=== PATIENT | male | born 1950 | race Caucasian/White ===

== ENCOUNTER 2024-05-01 08:37 | Outpatient (CLI) | payer MEDICARE, BC, SELFPAY ==
[2024-05-01 09:13] LABS: Absolute Lymphocyte Count 1.71 X10^3/uL (0.83-4.51); Absolute Neutrophil Count 5.1 X10^3/uL (2.0-7.7); Basophil# 0.08 X10^3/uL; Basophil% 1.1 % (0-1); Eosinophil# 0.05 X10^3/uL; Eosinophils% 0.7 % (0-5); Hematocrit 46.2 % (40-54); Hemoglobin 14.9 g/dL (13.0-16.5); Lymphocyte # 1.71 X10^3/ul (0.83-4.51); Lymphocyte % 22.7 % (19-41); Mean Corp Hgb Conc 32.3 g/dL (32-36); Mean Corpuscular Volume 96.3 fL (80-94); Mean Platelet Vol. 10.3 fl (6.2-12.0); Monocyte# 0.55 X10^3/uL; Monocyte% 7.3 % (0-10); NRBC Flagged by Analyzer 0 % (0-5); Neutrophil # 5.11 X10^3/uL (2.7-7.7); Neutrophil % 67.8 % (47-70); Platelet Count 287 K/mm3 (150-450); RBC Distribution Width CV 14.3 % (11.6-14.6); RBC Distribution Width SD 50.1 fl (35.1-43.9); White Blood Count 7.5 K/mm3 (4.4-11.0)
[2024-05-01 09:18] LABS: Erythrocyte Sedimentation Rate 13 mm/hr (0-20)
[2024-05-01 09:48] LABS: AST(SGOT) 32 U/L (15-37); Alanine Aminotransfer ALT/SGPT 43 U/L (16-61); Albumin, Serum 4.2 g/dL (3.2-5.0); Alkaline Phosphatase 63 U/L (45-117); Anion Gap 4 (5-15); BUN 12 mg/dL (7-18); BUN/Creat Ratio 14.6 RATIO (10-20); CRP < 2.90 mg/L (0.0-3.0); Calcium,Total 9.4 mg/dL (8.5-10.1); Chloride 105 mmol/L (98-107); Creatinine, Serum 0.82 mg/dL (0.70-1.30); EST Glomerular Filtration Rate 98 mL/min (>60); Est Glom Filt Rate - Afr Amer 118 mL/min (>60); Globulin 4.2 g/dL (2.2-4.2); Glucose 100 mg/dL (74-106); LDH 207 U/L (87-241); Protein, Total 8.4 g/dL (6.4-8.2); Sodium Level 137 mmol/L (136-145)
[2024-05-05 21:07] LABS: ACCA 29 units (0-90); ALCA 11 units (0-60); AMCA 21 units (0-100); Alpha-1-Globulins 0.3 g/dL (0.0-0.4); Alpha-2-Globulins 0.9 g/dL (0.4-1.0); Anti-Centromere B Ab <0.2 AI (0.0-0.9); Anti-Chromatin <0.2 AI (0.0-0.9); Anti-Jo <0.2 AI (0.0-0.9); Anti-Scleroderma-70 AB <0.2 AI (0.0-0.9); Anti-dsDNA Ab <1 IU/mL (0-9); Beef <0.10 kU/L (Class 0); Chocolate <0.10 kU/L (Class 0); Codfish <0.10 kU/L (Class 0); Corn <0.10 kU/L (Class 0); Cytoplasmic Ab (C-ANCA) <1:20 titer (Neg:<1:20); Egg, Whole <0.10 kU/L (Class 0); Endomysial Antibody IgA Negative (Negative); Gamma Globulin 1.1 g/dL (0.4-1.8); Immunoglobulin A 284 mg/dL (61-437); Immunoglobulin E 22 IU/mL (6-495); Immunoglobulin G 1152 mg/dL (603-1613); Immunoglobulin M 32 mg/dL (15-143); Milk (Cow) <0.10 kU/L (Class 0); Mussels <0.10 kU/L (Class 0); PROEL- TOTAL PROTEIN 7.4 g/dL (6.0-8.5); Peanut <0.10 kU/L (Class 0); Perinuclear Ab (P-ANCA) <1:20 titer (Neg:<1:20); Pork <0.10 kU/L (Class 0); RNP Ab <0.2 AI (0.0-0.9); SJOGREN'S Anti-SS-A test < 0.2 AI (0.0-0.9); SJOGREN'S Anti-SS-B test < 0.2 AI (0.0-0.9); Salmon <0.10 kU/L (Class 0); Shrimp <0.10 kU/L (Class 0); Smith Ab <0.2 AI (0.0-0.9); Soybean <0.10 kU/L (Class 0); Tuna <0.10 kU/L (Class 0); Wheat <0.10 kU/L (Class 0); gASCA 22 units (0-50); t-Transglutaminase IgA 2 U/mL (0-3)
== END 2024-05-01 23:59 | disposition home or self-care (01) ==
PROVIDERS: PCP Family Medicine
DX: R19.7 Diarrhea, unspecified (principal)
CPT/HCPCS: 36415; 80053; 82784; 82785; 83516; 83615; 84165; 85025; 85652; 86003; 86005; 86036; 86037; 86140; 86225; 86235; 86255; 86334; 86671

== ENCOUNTER → 2024-05-02 | Outpatient (CLI) | payer MEDICARE, BC, SELFPAY ==
[2024-05-04 07:09] LABS: Calprotectin, Stool 104 ug/g (0-120)
[2024-05-04 22:07] LABS: Giardia Lamblia, Stool EIA Negative (Negative); Pancreatic Elastase, Fecal > 800 (>200)
== END | disposition home or self-care (01) ==
LOC: LABSPEC 08:04
PROVIDERS: PCP Family Medicine
DX: R19.7 Diarrhea, unspecified (principal)
CPT/HCPCS: 82653; 83630; 83993; 87177; 87209; 87329; 87493; 87506

== ENCOUNTER 2024-08-28 05:22 | Day surgery (SDC) | payer MEDICARE, BC, SELFPAY ==
[2024-08-28] VITALS (8 sets, daily range): BP systolic 95–121; BP diastolic 68–76; PULSE 71–97; RESP 16–18; TEMP 36.1–36.6; O2SAT 93–98; BMI 29.0
--- NOTE | 2024-08-28 06:18 | HP.PCM_ITS ---
HPI - General General Date of Admission: 08/28/24 Date of Service: 08/28/24 Chief Complaint: diarrhea HPI Narrative JOHN SALDANA, is a JOHN SALDANA, is a 73 M who presents for complaints of chronic diarrhea over the last few years. He reports becoming fearful to take longer trips due to risk of fecal urgency with incontinence. He states that his last colonoscopy was in 2016 and was told at that time to come back in 10years. He reports that he had his gallbladder removed over 20 years ago for RUQ pain due to possible stones without difficulty since. He denies difficulty chewing and swallowing, states heartburn and reflux is controlled with daily omeprazole, denies nausea, vomiting, abdominal bloating, constipation, hematochezia and melena. He reports occasional non-problematic external hemorrhoids. He denies knowing of food allergies or sensitivities. He states that he has 3-4 cps of black coffee every morning with loose to watery stools 4 to 5 times daily. He states that he's tried Metamucil fiber supplement and probiotics. He reports a shoulder injection for pain that briefly caused formed stools. He does report mild cramping just before having an episode of loose stool and that the cramping stops after BM. He denies tenesmus. He denies change of water source. [facility] Medical History Wears hearing aid Loss of hearing Wears glasses Wears dentures Depression Thyroid disease BPH (benign prostatic hyperplasia) Arthritis Prostate disease Smoker Major depressive disorder Erectile dysfunction Chronic diarrhea GERD (gastroesophageal reflux disease) Hyperlipidemia Hypothyroidism Home Medications ?Medication ?Instructions ?Recorded ?Last Taken ?Type finasteride 5 mg tablet 5 mg PO QDAY 04/13/24 Unknow n History levothyroxine 150 mcg capsule 150 mcg PO QDAY 04/13/24 08/28/24 02:30 History omeprazole 20 mg tablet,delayed 20 mg PO QDAY 04/13/24 08/28/24 02:30 History release paroxetine HCl 20 mg tablet 20 mg PO QDAY 04/13/24 Unk nown History sildenafil (pulm.hypertension) 20 20 mg PO TID 4 Unknown History mg tablet simvastatin 40 mg tablet 40 mg PO QDAY 04/13/24 Unkno wn History tamsulosin 0.4 mg capsule 0.4 mg PO QDAY 04/13/24 Unkn own History cholestyramine-aspartame 4 gram 4 g PO BID #60 ea 07/15 Unknown Rx oral powder for susp in a packet (Cholestyramine Light) Allergy/AdvReac Type Severity Reaction Status Date / Time No Known Allergies Allergy Verified 08/28/24 05:49 Surgical History History of colonoscopy History of esophagogastroduodenoscopy (EGD) History of tonsillectomy History of cataract removal with insertion of prosthetic lens History of cholecystectomy Social History Smoking Status: Current every day smoker tobacco type: cigarettes alcohol intake: current alcohol intake frequency: holidays/special occasions only ROS Constitutional Constitutional: Denies fatigue, fever(s), poor appetite, weight gain or weight loss Gastrointestinal Gastrointestinal: Denies belching, bloating, change in bowel habits, change in stool character, chewing difficulty, coffee ground emesis, constipation, cramping, diarrhea, dyspepsia, dysphagia, early satiety, excessive flatus, fecal incontinence, heartburn, hematemesis, hematochezia, hemorrhoids, loose stools, melena, nausea, odynophagia, rectal bleeding, tenesmus, vomiting or weight changes Vital Signs Vital Signs Vital Signs: 08/28/24 05:51 08/28/24 05:51 Temperature 97.8 F Temperature Source Temporal Pulse Rate 97 Respiratory Rate 16 Respiratory Pattern Normal Blood Pressure 121/76 H Blood Pressure Mean 91 Blood Pressure Source Monitor Blood Pressure Position Sitting Blood Pressure Location Right Arm Pulse Ox 98 Oxygen Delivery Method Room Air Weight Weight: 185 lb 3.013 oz Body Mass Index (BMI) 29.0 Physical Exam Const alert, oriented x3, no apparent distress and healthy appearing General Appearance: cooperative GI normal to inspection, nondistended, normoactive bowel sounds, soft to palpation, non-tender and non-distended Percussion: normal to percussion Rectal Exam: deferred Assessment & Plan Assessment/Plan (1) Chronic diarrhea of unknown origin: PLAN: Assessment and Plan Assessment and Plan (1) Chronic diarrhea of unknown origin: Status: Chronic Orders: Orders Allergen, Food Profile 14 Today K52.9 - Noninfective gastroenteritis and colitis, unspecified CRP Today K52.9 - Noninfective gastroenteritis and colitis, unspecified Immunoglobulins G/A/M/E Today K52.9 - Noninfective gastroenteritis and colitis, unspecified TRUPTI Comprehensive Panel Today K52.9 - Noninfective gastroenteritis and colitis, unspecified ENTERIC PATHOGEN PANEL STOOL Today K52.9 - Noninfective gastroenteritis and colitis, unspecified, R19.7 - Diarrhea, unspecified LDH Today K52.9 - Noninfective gastroenteritis and colitis, unspecified ANCA Today K52.9 - Noninfective gastroenteritis and colitis, unspecified Erythrocyte Sed Rate Today K52.9 - Noninfective gastroenteritis and colitis, unspecified Ova and Parasites 8623 Today K52.9 - Noninfective gastroenteritis and colitis, unspecified Calprotectin, Stool Today K52.9 - Noninfective gastroenteritis and colitis, unspecified Pancreatic Elastase, Fecal Today K52.9 - Noninfective gastroenteritis and colitis, unspecified CBC W/Diff, Automated Today K52.9 - Noninfective gastroenteritis and colitis, unspecified, R19.7 - Diarrhea, unspecified Giardia Lamblia, Stool EIA Today K52.9 - Noninfective gastroenteritis and colitis, unspecified Stool Lactoferrin/WBC Today K52.9 - Noninfective gastroenteritis and colitis, unspecified CDIFF (PCR) Today K52.9 - Noninfective gastroenteritis and colitis, unspecified IBD Expanded Profile Today K52.9 - Noninfective gastroenteritis and colitis, unspecified Celiac Disease Profile Today K52.9 - Noninfective gastroenteritis and colitis, unspecified TIARA + Protein Elect, Serum Today K52.9 - Noninfective gastroenteritis and colitis, unspecified Comprehensive Metabolic Profil Today K52.9 - Noninfective gastroenteritis and colitis, unspecified Plan JOHN SALDANA, is a 73 M who presents to the office today for establishment with [facility] for complaints of chronic diarrhea over the last few years. Differential diagnoses include: IBS-D, IBD, EPI, noninfectious inflammatory diarrhea. Discussed plans with him. * blood for food allergy, inflammatory, IBS/D markers * stool for inflammatory, enzyme, enteric markers * call with results * office follow-up 3months * consider colonoscopy after results
--- NOTE | 2024-08-28 06:25 | PRE.ANES_ITS ---
ASA Classification* ASA Classification ASA Classification: 2 Assessment & Plan Anesthesia* Anesthesia Assessment Anesthesia Assessment: Discussed sedation and/or anesthesia options, risks, benefits, and alternatives with patient/parents/legal guardian/POA. Questions invited. The patient/parents/legal guardian/POA seems to understand and agrees to proceed with anesthesia plan. Reviewed the physical assessment, medical history, allergy history and patient home medications list prior to surgery/procedure/anesthetic and documented any changes. Performed airway and anesthesia risk assessments. Anesthesia Type Anesthesia Type: MAC History Source History Obtained from:: Patient and Chart Anesthesia Focused Assessment* Temperature: 97.8 F Pulse Rate: 97 Blood Pressure: 121/76 Respiratory Rate: 16 Pulse Ox: 98 Oxygen Delivery Method: Room Air Airway Assessment Mouth opens: >3 cm Mallampati Score: II Teeth Condition: Dentures and Upper Focused Labs Anesthesia Preop lab: CBC WBC 7.5 K/mm3 (4.4-11.0) 05/01/24 08:44 05/01/24 RBC 4.80 M/mm3 (4.6-6.2) 05/01/24 08:44 05/01/24 Hgb 14.9 g/dL (13.0-16.5) 05/01/24 08:44 05/01/24 Hct 46.2 % (40-54) 05/01/24 08:44 05/01/24 Plt Count 287 K/mm3 (150-450) 05/01/24 08:44 05/01/24 CHEMISTRY Potassium 4.0 mmol/L (3.5-5.1) 05/01/24 08:44 05/01/24 Sodium 137 mmol/L (136-145) 05/01/24 08:44 05/01/24 BUN 12 mg/dL (7-18) 05/01/24 08:44 05/01/24 Creatinine 0.82 mg/dL (0.70-1.30) 05/01/24 08:44 05/01/24 Glucose 100 mg/dL (74-106) 05/01/24 08:44 05/01/24 COAG Pre-Assessment Diagnosis/Proposed Procedure Planned Operative Procedure(s): cscope Anesthesia History Anesthesia History - assembler dry cell and battery: Anesthesia History - assembler dry cell and battery Hx Hospitalization No 08/24/24 14:57 Any Problems With Anesthesia No 08/24/24 14:57 Cholinesterase deficiency No 08/24/24 14:57 You/Your Family Experience No 08/24/24 14:57 fever (hyperthermia) with Relationship Recent Exposure to Contagious No 08/28/24 05:51 Disease Does patient have nerve No 08/24/24 14:57 stimulator Patient instructed to have device shut off --Does patient have Pacemaker No 08/28/24 05:51 or ICD? When Was Last Pacemaker Check QUESTION #4 FULL TEXT: You/Your Family Experience fever (hyperthermia) with Anesthesia Last Oral Intake Last Oral intake: Last Oral Intake NPO since 02:30 08/28/24 05:51 Meds taken in AM with sips of Yes 08/28/24 05:51 water? Meds patient instructed to take am of surgery PONV PONV - assembler dry cell and battery: PONV - assembler dry cell and battery Female No 08/24/24 14:57 HX of Motion Sickness No 08/24/24 14:57 HX of N/V After Surgery No 08/24/24 14:57 Non-Smoker Yes 08/24/24 14:57 Duration of Surgery greater No 08/24/24 14:57 than 60 minutes Number of Risk Factors 1 08/24/24 14:57 PONV Score Low Risk 08/24/24 14:57 Height & Weight Height & Weight: Anesthesia: Height & Weight Height 5 ft 7 in 08/28/24 05:51 Weight: 84 kg 08/28/24 05:51 Body Mass Index (BMI) 29.0 08/28/24 05:51 Respiratory Assessment Respiratory Assessment - assembler dry cell and battery: Respiratory Tract Infection Hx - assembler dry cell and battery Hx Respiratory Tract Infection No 08/24/24 14:57 STOP Sleep Apnea STOP Sleep Apnea - assembler dry cell and battery: STOP Sleep Apnea - assembler dry cell and battery Hx Hypertension No 08/24/24 14:57 Hx Sleep Apnea No 08/24/24 14:57 CPAP BIPAP Do you snore loudly (louder No 08/24/24 14:57 than talking or can be heard Do you often feel tired/ No 08/24/24 14:57 fatigued/ sleepy during daytime? Has anyone observed you stop No 08/24/24 14:57 breathing during sleep? STOP Results Negative 08/24/24 14:57 QUESTION #5 FULL TEXT : Do you snore loudly (louder than talking or can be heard through closed doors)? Tobacco Use History Tobacco Use History - assembler dry cell and battery: Tobacco Use History - assembler dry cell and battery Tobacco Use Smoking Status Current every day smoker 08/24/24 14:57 Hx Tobacco Use Yes 08/24/24 14:57 Years Smoking Packs Smoked per Day 1 08/24/24 14:57 Smoking Cessation Date was within the last 15 years Hx Smoking Cessation Date Hx Smoking Cessation Counseling Hematologic Medial History Hematologic Hx - assembler dry cell and battery: Hematologic Medical Hx - census clerk Hx of Blood Transfusion No 08/24/24 14:57 Hx of Transfusion in last 3 No 08/24/24 14:57 Months Date of Last Transfusion (if within last 3 months) Ever experience any problems No 08/24/24 14:57 with transfusion(s)? Specify any problems Hx of Preganancy in last 3 N/A 08/24/24 14:57 Months Nurse Filling Out Transfusion NBUCHER 08/24/24 14:57 & Questions: Date: 08/24/24 08/24/24 14:57 Time: 14:59 08/24/24 14:57 Patient unable to answer at this time (ie. confused, unrespo /Reproduction History /Reproductive History - assembler dry cell and battery: /Reproductive Hx- assembler dry cell and battery Hx Now No 08/24/24 14:57 Gestational Age (in weeks): EDC: Hx Hx Para Hx Section SAB No 08/24/24 14:57 PFSH Medical History Wears hearing aid Loss of hearing Wears glasses Wears dentures Depression Thyroid disease BPH (benign prostatic hyperplasia) Arthritis Prostate disease Smoker Major depressive disorder Erectile dysfunction Chronic diarrhea GERD (gastroesophageal reflux disease) Hyperlipidemia Hypothyroidism Home Medications ?Medication ?Instructions ?Recorded ?Last Taken ?Type finasteride 5 mg tablet 5 mg PO QDAY 04/13/24 Unknow n History levothyroxine 150 mcg capsule 150 mcg PO QDAY 04/13/24 08/28/24 02:30 History omeprazole 20 mg tablet,delayed 20 mg PO QDAY 04/13/24 08/28/24 02:30 History release paroxetine HCl 20 mg tablet 20 mg PO QDAY 04/13/24 Unk nown History sildenafil (pulm.hypertension) 20 20 mg PO TID 4 Unknown History mg tablet simvastatin 40 mg tablet 40 mg PO QDAY 04/13/24 Unkno wn History tamsulosin 0.4 mg capsule 0.4 mg PO QDAY 04/13/24 Unkn own History cholestyramine-aspartame 4 gram 4 g PO BID #60 ea 07/15 Unknown Rx oral powder for susp in a packet (Cholestyramine Light) Allergy/AdvReac Type Severity Reaction Status Date / Time No Known Allergies Allergy Verified 08/28/24 05:49 Surgical History History of colonoscopy History of esophagogastroduodenoscopy (EGD) History of tonsillectomy History of cataract removal with insertion of prosthetic lens History of cholecystectomy Social History Smoking Status: Current every day smoker tobacco type: cigarettes alcohol intake: current alcohol intake frequency: holidays/special occasions only Review of Systems (Anesthesia) ROS Narrative System reviewed and no additional complaints, except as documented.
--- NOTE | 2024-08-28 06:30 | EGD_PTH ---
PATIENT: JOHN SALDANA LOC: EN U#:[id number] AGE/SX: 73/M ROOM: RE08/28/[address]: Dr. Omar Meza DO : 1950 BED: DIS: 08/28/2024 SPEC #: [id number] RECD: 08/28/24 11:28 STATUS: SHUBHAM REYahaira #: [id number] KAREN: 08/28/24 06:[address]: Omar Meza DEPT: SURGICAL PATHOLOGY RECD BY: [place] ENTERED: 08/28/24 11:29 SP TYPE: EGD BIOPSY MARTHA DR: Dr. Brittno Summers MD Tissues: COLON BIOPSY Procedures: Surgery Specimen Level IV HEADER OPERATION: Colonoscopy, biopsy PRE-OP DIAGNOSIS: Chronic diarrhea of unknown origin TISSUE SUBMITTED: Random colonic biopsy MICROSCOPIC DIAGNOSIS Colon, random, biopsy: * Increased intraepithelial lymphocytes with thickening of the subepithelial collagen plate, consistent with collagenous colitis. MICROSCOPIC DESCRIPTION Slides are reviewed. GROSS DESCRIPTION Received in fixative is one container labeled with the patient's name and designated Random colonic biopsy. The specimen consists of multiple irregular fragments of light moya soft tissue that in aggregate measure 1.3 x 0.8 x 0.2 cm. The specimen is totally submitted in one cassette. MS/mr 08/28/2024 CPT:20373
--- NOTE | 2024-08-28 07:10 | OP.CCLET_ITS ---
08/28/2024 Britton Summers Re : Colonoscopy procedure for Jose David Dimas Kristopher This procedure was performed on Wednesday, August 28, 2024. My impressions and recommendations are as follows: Impressions : - Patchy mild inflammation was found in the recto-sigmoid colon, in the sigmoid colon, in the descending colon, in the transverse colon, at the hepatic flexure and in the ascending colon secondary to colitis. Biopsied. - Diverticulosis in the recto-sigmoid colon, in the sigmoid colon, in the descending colon, at the splenic flexure and at the hepatic flexure. - The examined portion of the ileum was normal. Recommendations : - Discharge patient to home. - Resume previous diet. - Continue present medications. - Await pathology results. - Repeat colonoscopy in 5 years for surveillance based on pathology results. My findings are described in the full procedure note, which is enclosed. If I can be of further assistance, please feel free to contact me at . Sincerely, Omar Meza, 08/28/2024 7:09:32 AM This report has been signed electronically.
--- NOTE | 2024-08-28 07:10 | OP.COLON_ITS ---
Patient Name: Jose David Sun Procedure Date: 08/28/2024 6:32 AM Date of : 1950 Age: 73 Procedure: Colonoscopy Indications: Clinically significant diarrhea of unexplained origin Providers: Omar Meza DO Referring MD: Britton Summers Medicines: Monitored Anesthesia Care Patient Profile: This is a 73 year old male. Refer to note in patient chart for documentation of history and physical. Last Colonoscopy: several years ago. Complications: No immediate complications. Procedure: Pre-Anesthesia Assessment: - Prior to the procedure, a History and Physical was performed, and patient medications and allergies were reviewed. The patient is competent. The risks and benefits of the procedure and the sedation options and risks were discussed with the patient. All questions were answered and informed consent was obtained. Patient identification and proposed procedure were verified by the physician in the pre-procedure area. Mental Status Examination: alert and oriented. Airway Examination: normal oropharyngeal airway and neck mobility. Respiratory Examination: clear to auscultation. CV Examination: normal. Prophylactic Antibiotics: The patient does not require prophylactic antibiotics. Prior Anticoagulants: The patient has taken no anticoagulant or antiplatelet agents. ASA Grade Assessment: II - A patient with mild systemic disease. After reviewing the risks and benefits, the patient was deemed in satisfactory condition to undergo the procedure. The anesthesia plan was to use monitored anesthesia care (MAC). Immediately prior to administration of medications, the patient was re-assessed for adequacy to receive sedatives. The heart rate, respiratory rate, oxygen saturations, blood pressure, adequacy of pulmonary ventilation, and response to care were monitored throughout the procedure. The physical status of the patient was re-assessed after the procedure. After I obtained informed consent, the scope was passed under direct vision. Throughout the procedure, the patient's blood pressure, pulse, and oxygen saturations were monitored continuously. The Colonoscope was introduced through the anus and advanced to the terminal ileum. Scope In: 6:45:03 AM Scope Withdrawal Time 0 hours 14 minutes 32 seconds Scope Out: 7:04:56 AM Total Procedure Duration Time 0 hours 19 minutes 53 seconds Findings: The perianal and digital rectal examinations were normal. Patchy mild inflammation characterized by congestion (edema) was found in the recto-sigmoid colon, in the sigmoid colon, in the descending colon, in the transverse colon, at the hepatic flexure and in the ascending colon. Biopsies were taken with a cold forceps for histology. Verification of patient identification for the specimen was done. Estimated blood loss was minimal. Multiple small and large-mouthed diverticula were found in the recto-sigmoid colon, sigmoid colon, descending colon, splenic flexure and hepatic flexure. The terminal ileum appeared normal. Impression: - Patchy mild inflammation was found in the recto-sigmoid colon, in the sigmoid colon, in the descending colon, in the transverse colon, at the hepatic flexure and in the ascending colon secondary to colitis. Biopsied. - Diverticulosis in the recto-sigmoid colon, in the sigmoid colon, in the descending colon, at the splenic flexure and at the hepatic flexure. - The examined portion of the ileum was normal. Recommendation: - Discharge patient to home. - Resume previous diet. - Continue present medications. - Await pathology results. - Repeat colonoscopy in 5 years for surveillance based on pathology results. Procedure Code(s): --- Professional --- 60876, Colonoscopy, flexible; with biopsy, single or multiple CPT copyright 2021 [employer]. All rights reserved. The codes documented in this report are preliminary and upon senior report developer review may be revised to meet current compliance requirements. Omar Meza DO 08/28/2024 7:09:32 AM This report has been signed electronically. Number of Addenda: 0 Note Initiated On: 08/28/2024 6:32 AM
--- NOTE | 2024-08-28 07:11 | PCM.POST.ANE ---
Anesthesia: Postop Eval I Current Vital Signs Temperature: 97.3 F Pulse Rate: 77 Blood Pressure: 98/72 Respiratory Rate: 18 Pulse Ox: 93 Assessment Airway patent: Yes Spontaneous unlabored respirations: Yes nausea: No Vomiting: No Anesthesia Complication: No Fluid Hydration Crystalloid volume administer (ml): 10 Total IV fluid infused: 10 Progress Note Anesthesia document: Postop Eval 1 completed: Yes
--- NOTE | 2024-08-28 07:41 | POSTOPAN2_ITS ---
Anesthesia Postop Eval I Sum Postop Eval Completion status Anesthesia document: Postop Eval 1 completed: Yes Anesthesia Postop Eval I Summary Anesthesia Postop Eval I Summary: Anesthesia Postop Eval I: Assessment Summary Airway patent Yes 08/28/24 07:11 EGG [email or web address] Spontaneous unlabored Yes 08/28/24 07:11 EGG [email or web address].[email or web address] respirations Mental status nausea No 08/28/24 07:11 EGG [email or web address].[email or web address] Vomiting No 08/28/24 07:11 EGG [email or web address].[email or web address] Anesthesia Postop Eval I: Fluid Summary Crystalloid volume administer 10 08/28/24 07:11 EGG [email or web address].CSIR (ml) Colloids volume administered ( ml) Blood Product volume administered (ml) Total IV fluid infused 10 08/28/24 07:11 EGG [email or web address].[email or web address] Anesthesia Postop Eval I: Summary Notes Anesthesia Complication No 08/28/24 07:11 EGG [email or web address].CSIR Anesthesia Complication Comment: Post-operative progress note Anesthesia: Postop Eval II Evaluation Mental status: Awake Pain Level: 0 nausea: No Vomiting: No
--- NOTE | 2024-08-28 07:41 | PCM.POSTANE2 ---
Anesthesia Postop Eval I Sum Postop Eval Completion status Anesthesia document: Postop Eval 1 completed: Yes Anesthesia Postop Eval I Summary Anesthesia Postop Eval I Summary: Anesthesia Postop Eval I: Assessment Summary Airway patent Yes 08/28/24 07:11 TRAIN [email or web address] Spontaneous unlabored Yes 08/28/24 07:11 TRAIN [email or web address].CSIR respirations Mental status nausea No 08/28/24 07:11 TRAIN [email or web address].CSIR Vomiting No 08/28/24 07:11 TRAIN [email or web address].CSIR Anesthesia Postop Eval I: Fluid Summary Crystalloid volume administer 10 08/28/24 07:11 TRAIN [email or web address].CSIR (ml) Colloids volume administered ( ml) Blood Product volume administered (ml) Total IV fluid infused 10 08/28/24 07:11 TRAIN [email or web address].CSIR Anesthesia Postop Eval I: Summary Notes Anesthesia Complication No 08/28/24 07:11 TRAIN [email or web address].CSIR Anesthesia Complication Comment: Post-operative progress note Anesthesia: Postop Eval II Evaluation Mental status: Awake Pain Level: 0 nausea: No Vomiting: No
== END 2024-08-28 07:52 | disposition home or self-care (01) ==
LOC: EN 05:23 → AC 05:25
PROVIDERS: PCP Family Medicine; Referring Provider Family Medicine; Visit Provider Internal Medicine Gastroenterology
PROC: 0DJD8ZZ Inspection of Lower Intestinal Tract, Via Natural or Artificial Opening Endoscopic (ICD-10-PCS; CPT 45378; principal; 2024-08-28 06:25)
DX: K52.9 Noninfective gastroenteritis and colitis, unspecified (principal); K57.30 Diverticulosis of large intestine without perforation or abscess without bleeding; K21.9 Gastro-esophageal reflux disease without esophagitis; Z79.899 Other long term (current) drug therapy; E78.5 Hyperlipidemia, unspecified; F17.210 Nicotine dependence, cigarettes, uncomplicated; E03.9 Hypothyroidism, unspecified; Z79.890 Hormone replacement therapy
CPT/HCPCS: 45380; 88305; A4216; J2405